=== PATIENT | female | born 1965 ===

== ENCOUNTER → 2018-08-09 | Day surgery (SDC) | payer OTHER ==
[~2018-08-09] MED LIST: ATIVAN1 MG PO; BENADRYL50 MG PO; CELEXA40 MG PO; RESTORIL30 M1 PO
== END | disposition home or self-care (01) ==
LOC: ADM 08-04 12:00 → AMB-ENDOS 11:53 → CIR.AMB 12:00 → AMB-ENDOS 12:00
DX: K57.30 Diverticulosis of large intestine without perforation or abscess without bleeding (principal)

== ENCOUNTER 2019-08-16 08:16 | Outpatient (CLI) | payer OTHER | END 2019-08-16 08:22 | disposition home or self-care (01) | LOC: TOM 08:16 | DX: R19.4 Change in bowel habit (principal); Z80.0 Family history of malignant neoplasm of digestive organs; R10.30 Lower abdominal pain, unspecified | CPT/HCPCS: 74177; Q9965 ==